=== PATIENT | male | born 1950 | race Caucasian/White ===

== ENCOUNTER → 2017-12-08 | Outpatient (CLI) | payer MEDICARE ==
[~2017-12-08] MED LIST: ASPIRIN PO; DICLOFENAC SODI50 MG; FISH OIL 1,2001 EACH PO; HYDROCODONE PO; LOSARTAN POTAS100 MG; URIBEL CAPSULE1 EACH PO; VIAGRA100 MG; ZYLOPRIM300 MG; [UNRECOGNIZED DRUG - OTHER] PO
--- NOTE | 2017-12-08 15:07 | Diagnostic Imaging Report ---
PROCEDURE:X-RAY ABDOMEN - KUB COMPARISON:[facility], CT, CT ABDOMEN/PELVIS WO, 02/25/2017, 12:27. INDICATIONS:CALCULUS OF KIDNEY FINDINGS: Nonobstructive bowel gas pattern. No radiopaque densities project over the renal shadows, expected course of ureters or bladder. No acute bony abnormalities. Stable degenerative disc changes in the lumbosacral spine with associated leftward curvature. Stable pelvic phleboliths. No lytic or blastic lesions. CONCLUSION: No suspicious calcifications project over the genitourinary system. Sammy Shukla M.D. Dictated by: Sammy Shukla M.D. on 12/08/2017 at 15:08 Electronically approved by: Sammy Shukla M.D. on 12/08/2017 at 15:08
== END ==
LOC: RAD 13:46
PROVIDERS: ATTEND Urology
DX: N20.0 Calculus of kidney (principal)
CPT/HCPCS: 74018

== ENCOUNTER → 2018-11-30 | Outpatient (CLI) | payer MEDICARE ==
--- NOTE | 2018-11-30 16:31 | Diagnostic Imaging Report ---
Exam: KUB - 2 views Clinical History: Renal calculus. Comparison: None. Findings: The lateral aspect of the left abdomen is not included in the radiograph. Nonobstructive bowel gas pattern. Bowel gas partially obscures visualization of the kidneys. No definite urinary stone. There are bilateral calcified phleboliths. There are degenerative changes of the visualized spine and left greater than right hips. Impression: No radiographic evidence of urinary stone. Signed by: Dr. Elvie Olson MD on 11/30/2018 4:28 PM
== END ==
LOC: RAD 15:37
PROVIDERS: ATTEND Urology
DX: N20.0 Calculus of kidney (principal)
CPT/HCPCS: 74018

== ENCOUNTER → 2019-04-10 | Outpatient (CLI) | payer MEDICARE ==
--- NOTE | 2019-04-10 14:35 | Diagnostic Imaging Report ---
Exam: KUB - 2 views Clinical History: Renal calculi Comparison: Multiple prior KUBs, most recently of 11/22/2018 Findings: Nonobstructive bowel gas pattern. No evidence of free intraperitoneal air. No evidence of abnormal calcification. No acute bony abnormality. Degenerative changes of the visualized spine. Severe degenerative changes of the left hip joint. Moderate degenerative changes of the right hip joint. Impression: No radiographic evidence of renal calculi. Signed by: Best Vogel MD on 04/10/2019 2:31 PM
== END ==
LOC: RAD 12:01
PROVIDERS: ATTEND Urology
DX: N20.0 Calculus of kidney (principal)
CPT/HCPCS: 74018

== ENCOUNTER → 2019-11-15 | Outpatient (CLI) | payer MEDICARE ==
--- NOTE | 2019-11-15 11:05 | Diagnostic Imaging Report ---
EXAM: ABDOMEN-1VIEW (KUB) DATE: 11/15/2019 10:03 AM INDICATION: Calculus of kidney COMPARISON: 04/10/2019 FINDINGS: Bowel gas pattern is nonspecific but appears nonobstructive. No intraperitoneal free air is appreciated on the supine view examination. No radiographically evident renal stone or other abnormal intra-abdominal calcification is appreciated. Suspected phleboliths noted within the pelvis. There are degenerative changes of the lumbosacral spine. Advanced degenerative changes noted of the left hip. No acute osseous abnormality is identified. IMPRESSION: No radiographically evident renal calculi identified. Signed by: Dr. Chuy Sinclair MD on 11/15/2019 11:02 AM
== END ==
LOC: RAD 09:54
PROVIDERS: ATTEND Urology
DX: N20.0 Calculus of kidney (principal)
CPT/HCPCS: 74018

== ENCOUNTER → 2020-06-05 | Outpatient (CLI) | payer MEDICARE ==
--- NOTE | 2020-06-05 16:52 | Diagnostic Imaging Report ---
Abdomen, 1 view. History: Stones. Comparison: 11/15/2019. Findings: Air is scattered throughout nondilated small and large bowel. Calcified phleboliths are seen within the pelvis.. No stones are seen within the region of the kidneys. Advanced degenerative changes are present throughout the lumbar spine. Left hip replacement is noted. IMPRESSION: Non-specific bowel gas pattern. No visible renal calculi. Signed by: Sharad Bose on 06/05/2020 4:49 PM
== END ==
LOC: RAD 16:01
PROVIDERS: ATTEND Urology
DX: N20.0 Calculus of kidney (principal)
CPT/HCPCS: 74018

== ENCOUNTER → 2021-02-24 | Outpatient (CLI) | payer MEDICARE | LOC: RAD 08:08 | PROVIDERS: ATTEND Urology | DX: N20.0 Calculus of kidney (principal) | CPT/HCPCS: 74018 ==

== ENCOUNTER → 2021-11-04 | Outpatient (CLI) | payer MEDICARE | LOC: RAD 07:18 | PROVIDERS: ATTEND Urology | DX: N20.0 Calculus of kidney (principal) | CPT/HCPCS: 74018 ==

== ENCOUNTER → 2022-05-03 | Outpatient (CLI) | payer MEDICARE | LOC: RAD 08:59 | PROVIDERS: ATTEND Urology | DX: Z87.442 Personal history of urinary calculi (principal) | CPT/HCPCS: 74018 ==

== ENCOUNTER → 2022-10-21 | Outpatient (CLI) | payer MEDICARE | LOC: RAD 08:34 | PROVIDERS: ATTEND Urology | DX: Z87.442 Personal history of urinary calculi (principal) | CPT/HCPCS: 74018 ==

== ENCOUNTER → 2024-11-13 | Outpatient (REF) | payer MEDICARE | LOC: RAD 09:50 | PROVIDERS: ATTEND Urology | DX: Z87.442 Personal history of urinary calculi (principal) | CPT/HCPCS: 74018 ==